=== PATIENT | female | born 1960 | race Caucasian/White ===

== ENCOUNTER 2018-04-10 12:30 | Outpatient (CLI) | payer MEDICAID ==
--- NOTE | 2018-04-10 22:42 | CT Report ---
Reason: ABNORMAL CHEST XRAY Procedure Date: 04/10/2018 Accession Number: [id number] / [id number] Procedure: CT - Chest W/O CPT Code: FULL RESULT: EXAM: CT CHEST EXAM DATE: 04/10/2018 01:00 PM. CLINICAL HISTORY: Abnormal chest x-ray. COMPARISONS: None. TECHNIQUE: Routine helical CT imaging was performed through the chest. IV contrast: None. Reconstructions: Coronal and sagittal. In accordance with CT protocol optimization, one or more of the following dose reduction techniques were utilized for this exam: automated exposure control, adjustment of mA and/or KV based on patient size, or use of iterative reconstructive technique. FINDINGS: Lungs/Pleura: Apical predominant paraseptal emphysema. Mild peripheral reticulation. No nodules, bronchial thickening, consolidation, or edema. Pulmonary vasculature is normal. No pericardial or pleural effusion. No pneumothorax. Mediastinum: Normal. No adenopathy or masses. The heart and great vessels are normal. Bones: Unremarkable. Visualized Abdomen: Ill-defined hepatic low densities up to 4.5 cm size. Other: None. IMPRESSION: 1. Apical predominant paraseptal emphysema. 2. Mild diffuse peripheral reticulation. 3. Ill-defined hepatic low densities concerning for metastatic liver disease. [facility]
== END 2018-04-10 12:31 | disposition home or self-care (01) ==
LOC: DI 12:30
PROVIDERS: ATTEND Specialist/Technologist Athletic Trainer
DX: J43.9 Emphysema, unspecified (principal); K76.9 Liver disease, unspecified
CPT/HCPCS: 71250

== ENCOUNTER 2018-05-02 08:27 | Outpatient (CLI) | payer MEDICAID ==
--- NOTE | 2018-05-02 11:27 | Ultrasound Report ---
Reason: LIVER LESION Procedure Date: 05/02/2018 Accession Number: [id number] / [id number] Procedure: US - Abdomen Limited CPT Code: FULL RESULT: EXAM: ABDOMEN ULTRASOUND LIMITED, RUQ EXAM DATE: 05/02/2018 10:18 AM. CLINICAL HISTORY: Liver lesion. COMPARISON: CHEST W/O 04/10/2018 12:58 PM. TECHNIQUE: Real-time scanning was performed with static images obtained. FINDINGS: Liver: Liver background parenchyma is heterogeneous and coarse with multiple echogenic masses with irregular borders, the largest of which measures 8.5 x 6 x 5.0 cm in the right lobe corresponds to the dominant hypodense lesion on CT. Separately, a cyst measuring up to 2.7 cm is seen in the right lobe of the liver. The right lobe of the liver measures at least 17.3 cm. Main portal vein flow: Hepatopetal. Dedicated evaluation of the gallbladder and biliary ductal system was not performed. Other: None. IMPRESSION: The suspicious lesions seen on CT appear echogenic on ultrasound. Please note that ultrasound is not able to characterize solid liver masses. Imaging characterization, if primary hepatic malignancy or benign masses are suspected can be accomplished by CT of the liver with and without contrast for liver mass protocol. The most common primary malignancy metastatic to the liver is colorectal in origin. Therefore, correlation to recent colonoscopy results may be helpful. [facility]
== END 2018-05-02 08:28 | disposition home or self-care (01) ==
LOC: DI 08:27
PROVIDERS: ATTEND Nurse Practitioner Family
DX: K76.9 Liver disease, unspecified (principal)
CPT/HCPCS: 76705

== ENCOUNTER 2018-05-19 08:00 | Outpatient (CLI) | payer MEDICAID ==
[2018-05-19 17:26] LABS: MUDS CUTOFF CONCENTRATIONS CUTOFF CONC BELOW:
[2018-05-19 17:43] LABS: AMPHETAMINE SCREEN,URINE NEGATIVE (NEGATIVE); BENZODIAZEPINES SCREEN, URINE NEGATIVE (NEGATIVE); COCAINE SCREEN URINE NEGATIVE (NEGATIVE); METHADONE SCREEN, URINE NEGATIVE (NEGATIVE); METHAMPHETAMINES SCREEN, URINE NEGATIVE (NEGATIVE); OPIATE SCREEN, URINE POSITIVE (NEGATIVE); TRICYCLIC ANTIDEPRESSANT,URINE NEGATIVE (NEGATIVE)
[2018-05-19 17:44] LABS: OXYCODONE SCREEN, URINE NEGATIVE (NEGATIVE); PROPOXYPHENE SCREEN, URINE NEGATIVE (NEGATIVE)
== END 2018-05-19 23:59 ==
LOC: LAB.R 08:00
PROVIDERS: ATTEND Nurse Practitioner
DX: Z79.891 Long term (current) use of opiate analgesic (principal)
CPT/HCPCS: 80306

== ENCOUNTER 2019-04-25 10:05 | Outpatient (CLI) | payer MEDICAID | END 2019-04-25 10:06 | disposition short-term general hospital (02) | LOC: EMS 10:05 | PROVIDERS: ATTEND Surgery | DX: R06.02 Shortness of breath (principal); M54.9 Dorsalgia, unspecified | CPT/HCPCS: A0425; A0429; A0999 ==

== ENCOUNTER 2019-05-06 13:08 | Outpatient (CLI) | payer MEDICAID ==
[~2019-05-06 13:08] MED LIST: ALBUTEROL NEB 2.5 MG/3 ML INH SCH
== END 2019-05-06 13:09 | disposition home or self-care (01) ==
LOC: RT 13:08
PROVIDERS: ATTEND Physician Assistant Medical
DX: J43.9 Emphysema, unspecified (principal)
CPT/HCPCS: 94060

== ENCOUNTER 2019-08-06 17:50 | Outpatient (CLI) | payer MEDICAID | END 2019-08-06 17:51 | disposition EMS.NT | LOC: EMS 17:50 | PROVIDERS: ATTEND Surgery | DX: R06.02 Shortness of breath (principal) ==

== ENCOUNTER 2019-08-06 19:34 | Emergency (ER) | payer MEDICAID ==
[2019-08-06 19:42] VITALS: BP 174/9
--- NOTE | 2019-08-06 20:46 | ED Physician Documentation ---
PD HPI HEENT - Stated complaint Stated Complaint: DIFFICULTY BREATHING - Chief complaint Chief Complaint: Resp PD PAST MEDICAL HISTORY - Past Medical History Cardiovascular: None Neuro: None GI: None : Incontinence, Nocturia, Frequency Musculoskeletal: Osteoarthritis, Chronic back pain, Other - Past Surgical History /[employer]: Tubal ligation HEENT: Tonsil/Adenoidectomy - Present Medications Home Medications: Ambulatory Orders Medication Instructions Recorded Confirmed Cyclobenzaprine [Flexeril] 5 mg PO TID PRN 09/21/18 09/21/18 oxyCODONE [Roxicodone] 5 mg PO BID 09/21/18 09/21/18 - Allergies Allergies/Adverse Reactions: Allergies Allergy/AdvReac Type Severity Reaction Status Date / Time anti inflammatory drugs AdvReac Edema Uncoded 09/21/18 11:24 antihistamines AdvReac Unknown Uncoded 09/21/18 11:24 - Social History Smoking Status: Current every day smoker Results - Vitals Vitals: Vital Signs - 24 hr 08/06/19 19:40 Temperature 36.6 C Heart Rate 91 Respiratory 18 Rate Blood Pressure 174/9 H O2 Saturation 95 Oxygen O2 Source Room air
== END 2019-08-06 23:06 | disposition left against medical advice (07) ==
LOC: ED 19:34
DX: Z53.21 Procedure and treatment not carried out due to patient leaving prior to being seen by health care provider (principal)